=== PATIENT | male | born 1990 | race Caucasian/White ===

== ENCOUNTER 2025-04-02 10:47 | Outpatient (CLI) | payer OTHER, SELFPAY | END 2025-04-02 10:48 | disposition home or self-care (01) | PROVIDERS: Visit Provider Family Medicine | DX: R55 Syncope and collapse (principal) | CPT/HCPCS: A0425; A0427 ==

== ENCOUNTER 2025-04-02 11:05 | Outpatient (CLI) | payer OTHER, SELFPAY | END 2025-04-02 11:06 | disposition home or self-care (01) | LOC: AMB 04-04 11:52 | PROVIDERS: Visit Provider Family Medicine | DX: R55 Syncope and collapse (principal) | CPT/HCPCS: A0425; A0427 ==

== ENCOUNTER 2025-04-02 11:31 | Emergency (ER) | payer OTHER, SELFPAY ==
[2025-04-02] VITALS (120 sets, daily range): BP systolic 88–220; BP diastolic 53–198; PULSE 71–152; RESP 5–41; TEMP 37.3–37.6; O2SAT 93–100; BMI 25.8
--- NOTE | 2025-04-02 11:40 | CRLHL7_ITS ---
For Patients: As a result of the Century Cures Act, medical imaging exams and procedure reports are released immediately into your electronic medical record. You may view this report before your referring provider. If you have questions, please contact your health care provider. INDICATION: [place] runner. Tachycardia. TECHNIQUE: AP portable chest x-ray. FINDINGS: Clear lungs. Normal heart size and pulmonary vascularity. Normal included skeleton. No pneumothorax. No rib fracture identified. IMPRESSION: Negative AP portable chest x-ray. Dictated by Jonh Barnes MD @ 04/02/2025 12:56:56 PM (Electronically Signed)
[2025-04-02 12:01] LABS: Hematocrit* 42.5 % (37.0-53.0); Hemoglobin* 14.9 gm/dL (13.5-17.5); Immature Granulocytes Abs Auto 0.26 K/uL (0.00-0.30); Immature Granulocytes Pct Auto 3.7 %; Lymphocytes Absolute Auto 3.02 K/uL (0.90-2.90); Mean Corpuscular HGB Conc 35 gm/dL (32-36); Mean Corpuscular Hemoglobin 29 pg (26-34); Mean Corpuscular Volume 81 fL (80-100); RDW Coefficient of Variation % 11.4 % (11.5-15.5); Red Blood Count* 5.23 m/uL (4.30-5.90); White Blood Count* 7.06 K/uL (4.50-11.00)
[2025-04-02 12:02] LABS: Slide Review Reflex No
[2025-04-02 12:08] LABS: Troponin, Point-of-Care* 0.39 ng/ml (0.01-0.04)
[2025-04-02] MEDS: LACTATED RINGERS 1000 ML 1,000 ML 500 ML IV (12:15)
[2025-04-02 12:16] LABS: Albumin* 4.4 g/dL (3.3-5.0); Chloride* 115 mmol/L (96-114); Potassium* 4.8 mmol/L (3.6-5.1); Sodium* 143 mmol/L (135-149)
[2025-04-02 12:18] LABS: Blood Urea Nitrogen* 18 mg/dL (5-24); Creatinine* 1.9 mg/dL (0.5-1.5); Est. Creatinine Clearance* 58.35; Estimated Glomerular Filt Rate 47 ml/min
[2025-04-02 12:19] LABS: Alanine Aminotransferase* 21 U/L (4-50); Alkaline Phosphatase* 73 U/L (40-150); Anion Gap 8 mEq/L (7-15); Aspartate Amino Transferase* 41 U/L (12-35); Bilirubin Total* 0.5 mg/dL (0.1-1.5); Calcium* 8.8 mg/dL (8.4-10.6); Carbon Dioxide* 20 mmol/L (20-32); Glucose* 99 mg/dL (60-115); Total Protein* 7.0 g/dL (6.0-8.3)
--- NOTE | 2025-04-02 12:34 | CRLHL7_ITS ---
For Patients: As a result of the Century Cures Act, medical imaging exams and procedure reports are released immediately into your electronic medical record. You may view this report before your referring provider. If you have questions, please contact your health care provider. INDICATION: Altered mental status TECHNIQUE: CT head without contrast. COMPARISON: None. FINDINGS: Motion and beam hardening artifact degrades fine detail evaluation throughout the exam, predominantly within the skull base. No intracranial hemorrhage. No discrete mass or mass effect. There is no midline shift. The basilar cisterns are patent. No hydrocephalus. The padilla-white matter interface is otherwise preserved. No acute osseous abnormality. No extracalvarial soft tissue abnormality. The mastoid air cells are clear. The paranasal sinuses are well-aerated. The visualized portions of the orbits and globes are unremarkable. IMPRESSION: No acute intracranial process per unenhanced head CT given the above constraints. Please note that all CT scans at this facility use dose modulation, iterative reconstruction, and/or weight-based dosing when appropriate to reduce radiation dose to as low as reasonably achievable. Dictated by Julio Baez MD @ 04/02/2025 1:39:30 PM (Electronically Signed)
[2025-04-02 12:35] LABS: Creatine Kinase* 198 U/L (54-186)
--- OUTSIDE RECORDS SUMMARY | 2025-04-02 12:47 | XMS_ITS | Clinical Summary ---
Author Organization [facility] Address [address] [place] [address] Care Team Providers Care Insulation Cutter Name Role Phone Del Oro DO Primary Care Provider Source Comments You are receiving this document as you are listed as the primary care provider,follow-up provider, or the patient has been referred to you for consultation.This is in compliance with the Medicare and[facility] EHR Incentive Program,which states Providers who transition their patient to another setting of careor provider of care or refers their patient to another provider of care shouldprovide summary care record for each transition of care or referral. [employer] Allergies No known active allergies Medications No known medications Immunizations Immunization Administration Dates Next Due Chicken Pox - History of Illness 09/24/1995 DTaP 12/18/1995, 2,08/09/1991,1990,1990 HepA Adult (19+ yrs) 03/06/2021,08/19/2019 HepB Ped/Adol (0-18 yrs) 06/27/2003,11/23/2002,0 09/21/2002 Hib, Unspecified Formulation 03/31/1991,12/21/18 91 Influenza IIV4 (Quadrivalent ) 0.5mL (22494) 08/19/2019 MMR 09/21/2002,03/20/1992 Pfizer Monovalent 12+ Purple Top 12/12/2020,05/0 10/2020 Polio, Unspecified Formulation 6,03/20/1992,03/31/1991,1990 Td 11/23/2002 Tdap 08/19/2019,11/23/2002 Typhoid (Typhim Vi, IM) 08/19/2019 Family History Medical History Relation Name Comments Cancer, Prostate Father Diabetes Paternal Aunt Zeina Cancer, Pancreatic Paternal Grandmother Sera Diabetes Paternal Uncle 1 Skinny Diabetes Paternal Uncle 2 [place] Relation Name Status Comments Father Paternal Aunt Zeina Paternal Grandmother Sera Paternal Uncle 1 Skinny Paternal Uncle 2 [place] Social History Tobacco Use Types Packs/Day Years Used Date Smoking Tobacco: Never Smokeless Tobacco: Current Tobacco Cessation:Ready to Q uit: Not Asked; Counseling Given: Not Answered Alcohol Use Standard Drinks/Week Comments Yes 4 (1 standard drink = 0.6 oz pur e alcohol) 4-5 PHQ-2 Answer Date Recorded PHQ-2 Score 0 07/07/2024 Sex and Gender Information Value Date Recorded Sex Assigned at Not on file Legal Sex Male 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 Gender Identity Not on file Sexual Orientation Not on file Last Filed Vital Signs Vital Sign Reading Time Taken Comments Blood Pressure 137/63 03/06/2021 3:25 PM CDT Pulse 64 03/06/2021 3:25 PM CDT Temperature - - Respiratory Rate - - Oxygen Saturation - - Inhaled Oxygen Concentration - - Weight 83.9 kg (185 lb) 07/07/2024 7:33 AM GROUND CREWMAN Height 180.3 cm (5' 11) 03/06/2021 3:25 PM CDT Body Mass Index 25.8 03/06/2021 3:25 PM CDT Plan of Treatment Health Maintenance Due Date Last Done Comments Hep C Screening (Preventive Services) 1990 HIV Screening (Preventive Services) 2006 HPV Vaccine (1 - 3-dose SCDM series) 2017 COVID-19 Vaccine ( - season) 2025 12/12/2020, 11/21/2020 Influenza Vaccine (#1) 2025 08/19/2019 Adult Preventive Visit 07/07/2026 07/07/2024, 2020 DTaP/Tdap/Td Vaccine (8 - Tdap) 08/19/2029 08/19/2019, 11/23/2002, 11/23/2002, Additional history exists Zoster/Shingles Vaccine (1 of 2) 2040 Hib Vaccine Aged Out 03/31/1991, 1990 No lo nger eligible based on patient's age to complete this topic IPV (Polio) Vaccine Completed 12/18/1995, 03/20/1992, 03/31/1991, Additional history exists HepB Vaccine Completed 06/27/2003, 12/2002, 09/21/2002 HepA Vaccine Completed 03/06/2021, 08/19/2019 MCV4 Vaccine Aged Out No longer eligi ble based on patient's age to complete this topic Meningococcal B Vaccine Aged Out No l onger eligible based on patient's age to complete this topic Pneumococcal Vaccine Aged Out No long er eligible based on patient's age to complete this topic Insurance [facility] Care Teams Insulation Cutter Relationship Specialty Start Date End Date Del Oro DO [address] [place] [address] PCP - General Family Practice 03/06/21
--- OUTSIDE RECORDS SUMMARY | 2025-04-02 12:47 | XMS_ITS | Clinical Summary ---
Author Organization [facility] Address [address] [place] [address] Care Team Providers Care Operations Lead Name Role Phone None Reported, Pcp Primary Care Provider Unavail able Source Comments Patient records contain information from all sites at [facility]. For routine questions regarding patient records, call [phone] during business hours, M-F 8:00 AM - 5:00 PM Central Time. Record requests for emergency care only can be directed to [phone] at any time.[facility] Allergies Active Allergy Reactions Criticality Noted Date Comments Pollen Extracts Other (see comments) 10/28/2010 Medications oxyCODONE (ROXICODONE) 5 mg immediate release tabletIndicatio ns:Acute Pain Exception Take 1 tablet (5 mg total) by mouth every 4 (four) hours as needed for pain for up to 10 doses Indication: Acute Pain Exception. 10 tablet 08/26/2023 10:24 AM ASSISTANT BUYER 08/26/2023 Active cefdinir (OMNICEF) 300 mg capsule Take 1 capsule by mouth 2 (two) times a day. 07/31/2023 Active Active Problems No known active problems Immunizations Immunization Administration Dates Next Due HepB, Unspecified 11/23/2002 MMR 09/21/2002 Td (Adult), adsorbed 11/23/2002 Social History Tobacco Use Types Packs/Day Years Used Date Smoking Tobacco: Never Smokeless Tobacco: Never Tobacco Cessation:Counseling Given: Not Answered [facility] Utilities Answer Date Recorded In the past 12 months has [employer], gas, oil, or water company threatened to shut off services in your home? Patient declined 08/12/2023 Hunger Vital Sign Answer Date Recorded Within the past 12 months, y ou worried that your food would run out before you got the money to buy more. Patient declined Within the past 12 months, t he food you bought just didn't last and you didn't have money to get more. Patient declined PRAPARE - Transportation Answer Date Re corded In the past 12 months, has l ack of transportation kept you from medical appointments or from getting medications? Patient declined 08/12/2023 In the past 12 months, has l ack of transportation kept you from meetings, work, or from getting things needed for daily living? Patient declined 08/12/2023 Housing Stability Answer Date Recorded What is your living situation today? Patient dec lined 08/12/2023 Sex and Gender Information Value Date Recorded Sex Assigned at Male 08/12/2023 12:24 PM ASSISTANT BUYER Legal Sex Male 10:04 PM ASSISTANT BUYER Gender Identity Male 08/12/2023 12:24 PM ASSISTANT BUYER Sexual Orientation Choose not to disclose 2023 12:24 PM ASSISTANT BUYER Last Filed Vital Signs Vital Sign Reading Time Taken Comments Blood Pressure 134/87 08/26/2023 1:45 PM ASSISTANT BUYER Pulse 74 08/26/2023 1:55 PM ASSISTANT BUYER Temperature 36.6 C (97.9 F) 08/26/2023 1:55 PM ASSISTANT BUYER Respiratory Rate 13 08/26/2023 1:55 PM ASSISTANT BUYER Oxygen Saturation 96% 08/26/2023 1:55 PM ASSISTANT BUYER Inhaled Oxygen Concentration - - Weight 84.7 kg (186 lb 11.7 oz) 08/26/2023 7:35 AM ASSISTANT BUYER Height 180.3 cm (5' 11) 08/26/2023 7:35 AM ASSISTANT BUYER Body Mass Index 26.04 08/26/2023 7:35 AM ASSISTANT BUYER Plan of Treatment Health Maintenance Due Date Last Done Comments HIV Screening 1990 Hepatitis C Screening 1990 HPV Vaccines (1 - 3-dose SCDM series) 2017 Depression Screening (Annual PHQ-2) 07/21/2024 COVID-19 Vaccine ( season) 2025 12/12/2020, 11/21/2020 Influenza Vaccine (#1) 2025 08/19/2019 DTaP,Tdap,and Td Vaccines (7 - Td or Tdap) 08/19/2029 08/19/2019, 11/23/2002, 11/23/2002, Additional history exists IPV Vaccines Completed 12/18/1995, 02/20, 03/31/1991, Additional history exists Hepatitis B Vaccines Completed 06/27/2003, 11/23/2002, 09/21/2002 Pneumococcal vaccine (0-49 years) Aged Out No longer eligible based on patient's age to complete this topic Insurance [facility] Care Teams Operations Lead Relationship Specialty Start Date End Date None Reported, Pcp PCP - General Family Medicine 08/26/23
--- OUTSIDE RECORDS SUMMARY | 2025-04-02 12:47 | XMS_ITS | Clinical Summary ---
Author Organization [facility] Address [address] [place] [id number] Care Team Providers Care Yarn Dry Room Worker Name Role Phone Pcp, No Primary Care Provider Unavailabl e Allergies No known active allergies Medications ibuprofen (ADVIL; MOTRIN) 200 mg tablet Take 1 tablet by mouth 4 times daily if needed. 0 09/03/2016 Active Active Problems No known active problems Immunizations Immunization Administration Dates Next Due Tdap 11/23/2002 Family History Medical History Relation Name Comments Good Health Father Good Health Mother Cancer Paternal Grandmother Alcoholism Paternal Uncle Relation Name Status Comments Father Mother Paternal Grandmother Paternal Uncle Social History Tobacco Use Types Packs/Day Years Used Date Smoking Tobacco: Never Smokeless Tobacco: Never Tobacco Cessation:Counseling Given: No Alcohol Use Standard Drinks/Week Comments Yes 0 (1 standard drink = 0.6 oz pur e alcohol) 3 per week Sex and Gender Information Value Date Recorded Sex Assigned at Not on file Legal Sex Male 7:55 AM CDT Gender Identity Not on file Sexual Orientation Not on file Obstetrics History Last Filed Vital Signs Vital Sign Reading Time Taken Comments Blood Pressure 110/70 09/03/2016 7:28 AM MACHINE ASSISTANT Pulse 66 09/03/2016 7:28 AM MACHINE ASSISTANT Temperature 36.7 C (98.1 F) 09/03/2016 7:28 AM MACHINE ASSISTANT Respiratory Rate - - Oxygen Saturation - - Inhaled Oxygen Concentration - - Weight 76.2 kg (168 lb) 09/03/2016 7:28 AM MACHINE ASSISTANT Height 178.4 cm (5' 10.25) 09/03/2016 7:[address] Body Mass Index 23.93 09/03/2016 7:28 AM MACHINE ASSISTANT Plan of Treatment Health Maintenance Due Date Last Done Comments HIV for age 15-65 2005 Hepatitis C screening for ag e 18-79 2008 Hepatitis B series for 19+ ( 1 of 3 - 19+ 3-dose series) 2009 Tetanus booster 11/23/2012 11/23/2002 Depression screening for age 12+ 02/27/2017 02/28/2016 BMI (ht and wt on same day) for age 18+ 09/03/2017 09/03/2016, 02/28/2016 HPV series for age 9-45 (1 - 3-dose SCDM series) 2017 COVID-19 vaccine series ( - 2023- season) 2025 Influenza Vaccine (#1) 2025 RSV vaccine for adults or (1 - 1-dose 75+ series) 2065 Pneumococcal series for age 6-49 Aged Out No longer eligible b ased on patient's age to complete this topic [place] [address] [place] [address] Care Teams Yarn Dry Room Worker Relationship Specialty Start Date End Date Pcp, No . PCP - General 02/28/16
[2025-04-02 12:50] LABS: INR 1.12 (0.91-1.10); Prothrombin Time 15.3 Seconds
[2025-04-02 12:53] LABS: HCO3 VBG 23 mmol/L (21-28); Lactate* 3.0 mmol/L (0.5-1.9); PCO2 VBG 49 mmHG (40-50); PO2 VBG < 30.1 mmHG (25-47); pH VBG 7.280 (7.32-7.43)
--- NOTE | 2025-04-02 13:09 | ED.GENADULT ---
HPI - General Adult General Date Seen: 04/02/25 Chief complaint: Arrhythmia/Palpitations Stated complaint: dehydration Time Seen by Provider: 04/02/25 11:48 Source: family, EMS and other Mode of arrival: EMS Limitations: no limitations History of Present Illness HPI narrative: Patient is a 34-year-old man with no pertinent medical history presenting to the emergency department for tachycardia and altered mental status. He was running a half marathon today and was almost to the and when he had to sit down. Workers for the event came up to him and he was stating he was having ankle issues. His , who was also running, states she was coming around a corner when she saw then loaded him onto the golf cart. She states he seemed to be acting completely normal and was acting as if it was his ankle problem as he was having ankle issues earlier. He told her to keep on chronic to the finish line so she did and the not think there is any other abnormalities. Patient then began to go padilla after that and was confused and minimally responsive. He was brought to EMS states he was tachycardic at 170. They state they did not have useful thermometer so they did not check a temperature but heart rate was in the 170s and he was very altered. Also was very diaphoretic. They gave him a L of fluids while transporting him here to the emergency department. They states he became more awake but is still confused and is still tachycardic of 160s by the time he arrived. Patient is unable to give me any further information. He does know he is at a hospital but does not know where the race was, what city he is currently and and was having difficulty giving his date. Denies any pain right now. Per reports from EMS and the it was very hot and muggy out with an uneven course. His does states he had viral symptoms last week that have since resolved. Related Data Home Medications ?Medication ?Instructions ?Recorded ?Confirmed No Known Home Medications 04/02/25 04/02/25 Allergies Allergy/AdvReac Type Severity Reaction Status Date / Time amoxicillin Allergy Intermediate Verified 04/02/25 12:22 Review of Systems Status of ROS: Reports: 10 or more systems reviewed and unremarkable except as noted in History and below Exam Narrative: Exam Narrative: Const: Well-nourished, Well-developed, diaphoretic Eyes: PERRL, no conjunctival injection, and symmetrical lids HENT: Atraumatic external nose and ears. Moist mucous membranes. Neck: Symmetric, trachea midline, No thyromegaly. CVS: Tachycardic, No murmurs or gallops. Pulsating JVD, Peripheral pulses 2+ and equal in all extremities RESP: Unlabored respiratory effort. Clear to auscultation bilaterally. GI: Nontender/Nondistended, No rebound or guarding. MSK:Extremities w/o deformity, Normal Active ROM Skin: Warm, Dry. No rashes or lesions. Neuro: Normal Muscle tone, No focal neurological deficits. Psych: Awake, Alert, & Oriented x0 Const: Vital Signs, click to edit/add: Vital Signs - 24 hr 04/02/25 11:35 04/02/25 11:51 04/02/25 12:00 Temperature 99.2 F Pulse Rate Pulse Rate [Pulse Oximeter] 152 H Respiratory Rate 30 H 38 H 32 H Blood Pressure Blood Pressure [Le ft Upper Arm] 113/67 Pulse Oximetry [facility] 04/02/25 12:03 04/02/25 12:04 04/02/25 12:12 Temperature Pulse Rate Pulse Rate [Pulse Oximeter] Respiratory Rate 41 H 24 19 Blood Pressure 149/69 H 127/74 Blood Pressure [Le ft Upper Arm] Pulse Oximetry [facility] 04/02/25 12:15 04/02/25 12:21 04/02/25 12:30 Temperature Pulse Rate 114 H 111 H Pulse Rate [Pulse Oximeter] Respiratory Rate 36 H 38 H Blood Pressure 136/86 Blood Pressure [Le ft Upper Arm] Pulse Oximetry 96 96 97 [facility] 04/02/25 12:32 04/02/25 12:33 04/02/25 12:42 Temperature Pulse Rate 109 H 107 H 120 H Pulse Rate [Pulse Oximeter] Respiratory Rate 36 H 38 H 19 Blood Pressure 133/76 220/198 H Blood Pressure [Le ft Upper Arm] Pulse Oximetry 98 97 93 [facility] 04/02/25 12:45 04/02/25 12:52 04/02/25 13:00 Temperature Pulse Rate 110 H 105 H Pulse Rate [Pulse Oximeter] Respiratory Rate 27 H 32 H 29 H Blood Pressure 127/83 Blood Pressure [Le ft Upper Arm] Pulse Oximetry 96 97 [facility] 04/02/25 13:01 04/02/25 13:02 04/02/25 13:13 Temperature Pulse Rate 106 H Pulse Rate [Pulse Oximeter] Respiratory Rate 31 H 25 H Blood Pressure 119/73 119/83 Blood Pressure [Le ft Upper Arm] Pulse Oximetry 98 97 Oxygen Delivery Me thod 04/02/25 13:15 04/02/25 13:22 04/02/25 13:23 Temperature Pulse Rate 103 H 104 H 105 H Pulse Rate [Pulse Oximeter] Respiratory Rate 18 9 L 10 L Blood Pressure 116/65 Blood Pressure [Le ft Upper Arm] Pulse Oximetry 96 94 96 Oxygen Delivery Me thod 04/02/25 13:27 04/02/25 13:30 04/02/25 13:32 Temperature 99.6 F Pulse Rate 98 103 H Pulse Rate [Pulse Oximeter] Respiratory Rate 30 H 16 Blood Pressure 113/82 Blood Pressure [Le ft Upper Arm] Pulse Oximetry 95 95 Oxygen Delivery Me thod 04/02/25 13:41 04/02/25 13:45 04/02/25 13:51 Temperature Pulse Rate 100 102 H 101 H Pulse Rate [Pulse Oximeter] Respiratory Rate 28 H 24 32 H Blood Pressure 108/77 115/72 Blood Pressure [Le ft Upper Arm] Pulse Oximetry 95 95 95 Oxygen Delivery Me thod 04/02/25 14:00 04/02/25 14:02 04/02/25 14:12 Temperature Pulse Rate 98 96 97 Pulse Rate [Pulse Oximeter] Respiratory Rate 24 29 H 22 Blood Pressure 112/71 101/91 H Blood Pressure [Le ft Upper Arm] Pulse Oximetry 96 95 96 Oxygen Delivery Me thod 04/02/25 14:15 04/02/25 14:22 04/02/25 14:30 Temperature Pulse Rate 98 96 94 Pulse Rate [Pulse Oximeter] Respiratory Rate 19 10 L Blood Pressure 110/71 Blood Pressure [Le ft Upper Arm] Pulse Oximetry 96 96 96 Oxygen Delivery Me thod 04/02/25 14:32 04/02/25 14:41 04/02/25 14:45 Temperature Pulse Rate 96 94 93 Pulse Rate [Pulse Oximeter] Respiratory Rate 9 L 18 7 L Blood Pressure 112/94 H 98/65 Blood Pressure [Le ft Upper Arm] Pulse Oximetry 95 96 96 Oxygen Delivery Me thod 04/02/25 14:51 04/02/25 15:00 04/02/25 15:02 Temperature Pulse Rate 91 88 91 Pulse Rate [Pulse Oximeter] Respiratory Rate 10 L 17 17 Blood Pressure 106/73 106/67 Blood Pressure [Le ft Upper Arm] Pulse Oximetry 97 96 96 Oxygen Delivery Me thod 04/02/25 15:12 04/02/25 15:15 04/02/25 15:22 Temperature Pulse Rate 93 92 87 Pulse Rate [Pulse Oximeter] Respiratory Rate 18 6 L Blood Pressure 89/66 L 88/53 L Blood Pressure [Le ft Upper Arm] Pulse Oximetry 96 97 97 Oxygen Delivery Me thod 04/02/25 15:30 04/02/25 15:32 04/02/25 15:42 Temperature Pulse Rate 91 92 89 Pulse Rate [Pulse Oximeter] Respiratory Rate 25 H 26 H Blood Pressure 105/66 103/64 Blood Pressure [Le ft Upper Arm] Pulse Oximetry 96 95 97 Oxygen Delivery Me thod 04/02/25 15:45 04/02/25 15:51 04/02/25 16:00 Temperature Pulse Rate 88 88 100 Pulse Rate [Pulse Oximeter] Respiratory Rate 25 H 21 Blood Pressure 99/67 Blood Pressure [Le ft Upper Arm] Pulse Oximetry 98 98 98 Oxygen Delivery Me thod 04/02/25 16:02 04/02/25 16:12 04/02/25 16:15 Temperature Pulse Rate 88 85 86 Pulse Rate [Pulse Oximeter] Respiratory Rate 10 L 14 15 Blood Pressure 97/75 102/68 Blood Pressure [Le ft Upper Arm] Pulse Oximetry 98 97 98 Oxygen Delivery Me thod 04/02/25 16:30 04/02/25 16:32 04/02/25 16:42 Temperature Pulse Rate 89 91 89 Pulse Rate [Pulse Oximeter] Respiratory Rate 14 11 L 25 H Blood Pressure 113/73 110/69 Blood Pressure [Le ft Upper Arm] Pulse Oximetry 99 100 99 Oxygen Delivery Me thod 04/02/25 16:43 04/02/25 16:45 04/02/25 16:52 Temperature Pulse Rate 91 90 86 Pulse Rate [Pulse Oximeter] Respiratory Rate 15 14 Blood Pressure 108/71 Blood Pressure [Le ft Upper Arm] Pulse Oximetry 99 98 100 Oxygen Delivery Me thod 04/02/25 17:00 04/02/25 17:02 04/02/25 17:12 Temperature Pulse Rate 90 91 87 Pulse Rate [Pulse Oximeter] Respiratory Rate 13 24 Blood Pressure 110/71 116/70 Blood Pressure [Le ft Upper Arm] Pulse Oximetry 97 99 99 Oxygen Delivery Me thod 04/02/25 17:22 04/02/25 17:32 04/02/25 17:41 Temperature Pulse Rate 88 93 96 Pulse Rate [Pulse Oximeter] Respiratory Rate 16 13 Blood Pressure 115/65 99/66 113/75 Blood Pressure [Le ft Upper Arm] Pulse Oximetry 100 100 99 Oxygen Delivery Me thod 04/02/25 17:51 04/02/25 17:52 04/02/25 18:00 Temperature Pulse Rate 89 88 90 Pulse Rate [Pulse Oximeter] Respiratory Rate 22 12 20 Blood Pressure 106/63 Blood Pressure [Le ft Upper Arm] Pulse Oximetry 99 99 98 Oxygen Delivery Me thod 04/02/25 18:02 04/02/25 18:12 04/02/25 18:15 Temperature Pulse Rate 92 85 85 Pulse Rate [Pulse Oximeter] Respiratory Rate 13 21 23 Blood Pressure 98/68 100/66 Blood Pressure [Le ft Upper Arm] Pulse Oximetry 99 99 98 Oxygen Delivery Me thod 04/02/25 18:22 04/02/25 18:30 04/02/25 18:32 Temperature Pulse Rate 86 85 86 Pulse Rate [Pulse Oximeter] Respiratory Rate 11 L 34 H 20 Blood Pressure 108/68 104/68 Blood Pressure [Le ft Upper Arm] Pulse Oximetry 99 97 97 Oxygen Delivery Me thod 04/02/25 18:42 04/02/25 18:45 04/02/25 18:52 Temperature Pulse Rate 89 87 89 Pulse Rate [Pulse Oximeter] Respiratory Rate 18 20 5 L Blood Pressure 102/68 110/71 Blood Pressure [Le ft Upper Arm] Pulse Oximetry 96 96 97 Oxygen Delivery Me thod Course Vital Signs Vital signs: Initial Vital Signs Temperature 99.2 F 04/02/25 11:35 Temperature Source Oral 04/02/25 11:35 Pulse Rate 152 H 04/02/25 11:35 Respiratory Rate 30 H 04/02/25 11:35 Blood Pressure 113/67 04/02/25 11:35 Blood Pressure Mean 82 04/02/25 11:35 Blood Pressure Position Supine 04/02/25 11:35 Pulse Oximetry 93 04/02/25 11:35 Oxygen Delivery Method Room Air 04/02/25 11:35 Vital Signs Temperature 99.2 F 04/02/25 11:35 Pulse Rate 152 H 04/02/25 11:35 Respiratory Rate 30 H 04/02/25 11:35 Blood Pressure 113/67 04/02/25 11:35 Pulse Oximetry 93 04/02/25 11:35 Oxygen Delivery Method Room Air 04/02/25 11:35 Temperature 99.6 F 04/02/25 13:27 Pulse Rate 89 04/02/25 18:52 Respiratory Rate 5 L 04/02/25 18:52 Blood Pressure 110/71 04/02/25 18:52 Pulse Oximetry 97 04/02/25 18:52 Oxygen Delivery Method Room Air 04/02/25 11:35 Medications Administered Medications: Discontinued Medications Generic Name Dose Route Start Last Admin Trade Name Freq PRN Reason Stop Dose Admin Sodium Chloride 1,000 mls @ 1,000 mls/hr 04/02/25 12:00 04/02/25 12:06 0.9 % Sodium Chloride 1000 Ml IV 04/02/25 12:59 Infused .Q1H KISHAN Infusion Lactated Ringer's 1,000 mls @ 500 mls/hr 04/02/25 12:28 04/02/25 13:22 Lactated Ringers 1000 Ml IV 04/02/25 14:27 Infused .Q2H KISHAN Infusion Metoclopramide HCl 10 mg 04/02/25 12:54 04/02/25 13:30 Metoclopramide Hcl 5 Mg/Ml Inj IVP 04/02/25 12:55 Not Given ONCE ONE Medical Decision Making MDM Narrative Medical decision making narrative: Patient is a 34-year-old male presenting to the emergency department for altered mental status and tachycardia. EKG was done when he arrived showing a sinus tachycardia. I do not believe this is SVT so I will hold off on doing at adenosine. Most likely his tachycardia is from dehydration as he is extremely diaphoretic. Oral temperature when he arrived was 99.6 but this was an hour after the initial occurrence I cannot say he was not having heat stroke earlier. He does have altered mental status. With how much she was sweating and the fact that he is drinking water along the course I am concerned for hyponatremia. He has received 1 L of normal saline over ready and we will give another L. Initially was pressure bagged to bring up his fluid status but his heart rate quickly came down to about 120 to 130 and due to that after when a pressure bag in and a quarter to half of the bag we stopped the pressure bag and instead let it run by gravity as I do not want to overcorrect a potential hyponatremia. Lab work was not done until he got about 1.5 L total between EMS and the emergency department but would very likely be still hyponatremic if the issue was hyponatremia. Also order a VBG, lactate, CK, TSH, coags, CBC, CMP. Troponin was also ordered and was 0.39. This was likely secondary to the heat stroke and is unlikely to be ACS and this otherwise healthy man although his did states he was having some viral symptoms a week ago so myocarditis is not ruled out. Will repeat troponin. His CBC returned unremarkable. His CMP showed normal LFTs a sodium of 143 potassium 4.5 and a creatinine of 1.9. Do not know what his previous creatinine and was but likely it is currently elevated due to dehydration. Patient has received the 2 L fluid and is now getting a L of lactated Ringer's 500 mL/hr to help with his fluid status. He is showing great improvement at this time and his states he almost appears back to normal. As he is now stable I will order CT scan of his head for evaluation. This was done and returned showing no acute concerning abnormalities. Chest x-ray was also done showing no acute concerning abnormalities. Repeat troponin was done 3 hours later and has elevated to 0.65. Repeat EKG was done showing his tachycardia has improved significantly and no acute abnormality seen. I spoke to Dr. Castellon of [facility]. She recommended repeat troponin in 6 hours and a echocardiogram in the morning as it is hard to say if is myocarditis or not due to his viral symptoms from last week. At this time Dr. Castellon does think the patient is safe to stay here and [place] as long as we are comfortable with it. I spoke to the on-call hospitalist who asked for repeat troponin now to make sure it is still not rising. This was done and it has now gone up to 0.89. Patient is still pain free and is fully back to his baseline. He is asymptomatic currently and throughout this time has stated he has not had any chest pain as far as he is aware. Another EKG was done showing normal sinus rhythm. I reviewed several criteria for LVH and I do not see any criteria for LVH/HOCM on his EKG. Bedside echocardiogram done by myself shows good heart squeeze. I spoke to the on-call hospitalist again he wants me to speak to the cath lab tech and reconfirm if we should admit or transfer as she does feel uncomfortable with the young patient like this having continuing the elevated high troponins with out a known cause. I spoke to Dr. Castellon again he states the patient is a reasonable patient to transfer due to his unclear etiology of the rising troponins. I did consider possible decreased perfusion from the severe dehydration and heat stroke but still seems odd that she could lowers perfusion in his heart low enough from this to cause the elevated troponins. Of note patient does states his uncle and great grandfather of a heart attack at a young age. In the 40s he believes. No other heart disease that he is aware of in the family. Lab Data Labs: Lab Results 04/02/25 04/02/25 04/02/25 Range/Units 11:39 11:52 12:10 WBC 7.06 (4.50-11.00) K/uL RBC 5.23 (4.30-5.90) m/uL Hgb 14.9 (13.5-17.5) gm/dL Hct 42.5 (37.0-53.0) % MCV 81 (80-100) fL MCH 29 (26-34) pg MCHC 35 (32-36) gm/dL RDW Coeff of Edis 11.4 L (11.5-15.5) % Plt Count 198 (140-440) K/uL Neut % (Auto) 42.7 (42.0-72.0) % Lymph % (Auto) 42.8 (20-44) % [place] % (Auto) 7.5 (0.0-11.0) % Eos % (Auto) 3.0 (0.0-7.0) % Baso % (Auto) 0.3 (0.0-3.0) % Neut # (Auto) 3.02 (1.7-7.0) K/uL Lymph # (Auto) 3.02 H (0.90-2.90) K/uL [place] # (Auto) 0.50 (0.00-0.90) K/UL Eos # (Auto) 0.21 (0.00-0.50) K/uL Baso # (Auto) 0.02 (0.00-0.30) K/uL Abs Immat Gran (auto) 0.26 (0.00-0.30) K/uL Imm/Tot Granulo (auto) 3.7 % INR 1.12 H (0.91-1.10) APTT 23 (23-33) Seconds VBG pH (7.32-7.43) VBG pCO2 (40-50) mmHG VBG pO2 (25-47) mmHG VBG HCO3 (21-28) mmol/L Sodium 143 (135-149) mmol/L Potassium 4.8 (3.6-5.1) mmol/L Chloride 115 H (96-114) mmol/L Carbon Dioxide 20 (20-32) mmol/L Anion Gap 8 (7-15) mEq/L BUN 18 (5-24) mg/dL Creatinine 1.9 H (0.5-1.5) mg/dL Estimated Creat Clear 58.35 Estimated GFR 47 ml/min Glucose 99 (60-115) mg/dL Lactate (0.5-1.9) mmol/L Calcium 8.8 (8.4-10.6) mg/dL Magnesium 1.6 (1.5-2.6) mg/dL Total Bilirubin 0.5 (0.1-1.5) mg/dL AST 41 H (12-35) U/L ALT 21 (4-50) U/L Alkaline Phosphatase 73 (40-150) U/L Total Creatine Kinase 198 H (54-186) U/L Troponin I 0.38 H* (0.01-0.04) ng/mL Total Protein 7.0 (6.0-8.3) g/dL Albumin 4.4 (3.3-5.0) g/dL TSH 2.260 (0.270-4.20) uIU/mL Urine Color (Yellow) Urine Appearance (Clear) Urine pH (5.0-8.5) Ur Specific [place] (1.000-1.030) Urine Protein (Negative) Urine Glucose (UA) (Negative) Urine Ketones (Negative) Urine Blood (Negative) Urine Nitrite (Negative) Urine Bilirubin (Negative) Urine Urobilinogen (0.2-1.0) Ur Leukocyte Esterase (Negative) Urine RBC (0-2) Urine WBC (0-5) Ur Squamous Epith Cells (None-Few) Urine Bacteria (None) Urine Opiates Screen (Negative) Ur Oxycodone Screen (Negative) Urine Methadone Screen (Negative) Ur Barbiturates Screen (Negative) U Tricyclic Antidepress (Negative) Ur Phencyclidine Scrn (Negative) Ur Amphetamines Screen (Negative) U Methamphetamines Scrn (Negative) U Benzodiazepines Scrn (Negative) Urine Cocaine Screen (Negative) U Marijuana (THC) Screen (Negative) Ur Drug Screen Comment Lab Acknowledgement Test Added POC Glucose 103 (60-115) mg/dl POC Troponin I 0.39 H (0.01-0.04) ng/ml 04/02/25 04/02/25 04/02/25 Range/Units 12:34 12:47 13:01 WBC (4.50-11.00) K/uL RBC (4.30-5.90) m/uL Hgb (13.5-17.5) gm/dL Hct (37.0-53.0) % MCV (80-100) fL MCH (26-34) pg MCHC (32-36) gm/dL RDW Coeff of Edis (11.5-15.5) % Plt Count (140-440) K/uL Neut % (Auto) (42.0-72.0) % Lymph % (Auto) (20-44) % [place] % (Auto) (0.0-11.0) % Eos % (Auto) (0.0-7.0) % Baso % (Auto) (0.0-3.0) % Neut # (Auto) (1.7-7.0) K/uL Lymph # (Auto) (0.90-2.90) K/uL [place] # (Auto) (0.00-0.90) K/UL Eos # (Auto) (0.00-0.50) K/uL Baso # (Auto) (0.00-0.30) K/uL Abs Immat Gran (auto) (0.00-0.30) K/uL Imm/Tot Granulo (auto) % INR (0.91-1.10) APTT (23-33) Seconds VBG pH 7.280 L (7.32-7.43) VBG pCO2 49 (40-50) mmHG VBG pO2 < 30.1 (25-47) mmHG VBG HCO3 23 (21-28) mmol/L Sodium 143 (135-149) mmol/L Potassium 4.5 (3.6-5.1) mmol/L Chloride 112 (96-114) mmol/L Carbon Dioxide 25 (20-32) mmol/L Anion Gap 6 L (7-15) mEq/L BUN 21 (5-24) mg/dL Creatinine 1.6 H (0.5-1.5) mg/dL Estimated Creat Clear 69.29 Estimated GFR 58 ml/min Glucose 118 H (60-115) mg/dL Lactate 3.0 H 1.5 (0.5-1.9) mmol/L Calcium 9.0 (8.4-10.6) mg/dL Magnesium (1.5-2.6) mg/dL Total Bilirubin (0.1-1.5) mg/dL AST (12-35) U/L ALT (4-50) U/L Alkaline Phosphatase (40-150) U/L Total Creatine Kinase (54-186) U/L Troponin I 0.65 H* (0.01-0.04) ng/mL Total Protein (6.0-8.3) g/dL Albumin (3.3-5.0) g/dL TSH (0.270-4.20) uIU/mL Urine Color (Yellow) Urine Appearance (Clear) Urine pH (5.0-8.5) Ur Specific [place] (1.000-1.030) Urine Protein (Negative) Urine Glucose (UA) (Negative) Urine Ketones (Negative) Urine Blood (Negative) Urine Nitrite (Negative) Urine Bilirubin (Negative) Urine Urobilinogen (0.2-1.0) Ur Leukocyte Esterase (Negative) Urine RBC (0-2) Urine WBC (0-5) Ur Squamous Epith Cells (None-Few) Urine Bacteria (None) Urine Opiates Screen (Negative) Ur Oxycodone Screen (Negative) Urine Methadone Screen (Negative) Ur Barbiturates Screen (Negative) U Tricyclic Antidepress (Negative) Ur Phencyclidine Scrn (Negative) Ur Amphetamines Screen (Negative) U Methamphetamines Scrn (Negative) U Benzodiazepines Scrn (Negative) Urine Cocaine Screen (Negative) U Marijuana (THC) Screen (Negative) Ur Drug Screen Comment Lab Acknowledgement Test Added POC Glucose (60-115) mg/dl POC Troponin I (0.01-0.04) ng/ml 04/02/25 04/02/25 04/02/25 Range/Units 13:31 16:20 17:35 WBC (4.50-11.00) K/uL RBC (4.30-5.90) m/uL Hgb (13.5-17.5) gm/dL Hct (37.0-53.0) % MCV (80-100) fL MCH (26-34) pg MCHC (32-36) gm/dL RDW Coeff of Edis (11.5-15.5) % Plt Count (140-440) K/uL Neut % (Auto) (42.0-72.0) % Lymph % (Auto) (20-44) % [place]agon[place] % (Auto) (0.0-11.0) % Eos % (Auto) (0.0-7.0) % Baso % (Auto) (0.0-3.0) % Neut # (Auto) (1.7-7.0) K/uL Lymph # (Auto) (0.90-2.90) K/uL [place] # (Auto) (0.00-0.90) K/UL Eos # (Auto) (0.00-0.50) K/uL Baso # (Auto) (0.00-0.30) K/uL Abs Immat Gran (auto) (0.00-0.30) K/uL Imm/Tot Granulo (auto) % INR (0.91-1.10) APTT (23-33) Seconds VBG pH (7.32-7.43) VBG pCO2 (40-50) mmHG VBG pO2 (25-47) mmHG VBG HCO3 (21-28) mmol/L Sodium (135-149) mmol/L Potassium (3.6-5.1) mmol/L Chloride (96-114) mmol/L Carbon Dioxide (20-32) mmol/L Anion Gap (7-15) mEq/L BUN (5-24) mg/dL Creatinine (0.5-1.5) mg/dL Estimated Creat Clear Estimated GFR ml/min Glucose (60-115) mg/dL Lactate (0.5-1.9) mmol/L Calcium (8.4-10.6) mg/dL Magnesium (1.5-2.6) mg/dL Total Bilirubin (0.1-1.5) mg/dL AST (12-35) U/L ALT (4-50) U/L Alkaline Phosphatase (40-150) U/L Total Creatine Kinase (54-186) U/L Troponin I 0.89 H* (0.01-0.04) ng/mL Total Protein (6.0-8.3) g/dL Albumin (3.3-5.0) g/dL TSH (0.270-4.20) uIU/mL Urine Color Yellow (Yellow) Urine Appearance Clear (Clear) Urine pH 5.5 (5.0-8.5) Ur Specific [place] 1.015 (1.000-1.030) Urine Protein Negative (Negative) Urine Glucose (UA) Negative (Negative) Urine Ketones Trace A (Negative) Urine Blood 1+ A (Negative) Urine Nitrite Negative (Negative) Urine Bilirubin Negative (Negative) Urine Urobilinogen 0.2 (0.2-1.0) Ur Leukocyte Esterase Negative (Negative) Urine RBC 0-2 (0-2) Urine WBC 0-2 (0-5) Ur Squamous Epith Cells None (None-Few) Urine Bacteria None (None) Urine Opiates Screen Negative (Negative) Ur Oxycodone Screen Negative (Negative) Urine Methadone Screen Negative (Negative) Ur Barbiturates Screen Negative (Negative) U Tricyclic Antidepress Negative (Negative) Ur Phencyclidine Scrn Negative (Negative) Ur Amphetamines Screen Negative (Negative) U Methamphetamines Scrn Negative (Negative) U Benzodiazepines Scrn Negative (Negative) Urine Cocaine Screen Negative (Negative) U Marijuana (THC) Screen Negative (Negative) Ur Drug Screen Comment See Note Lab Acknowledgement Test Added POC Glucose (60-115) mg/dl POC Troponin I (0.01-0.04) ng/ml Imaging Data Chest x-ray: Attestation: I have reviewed the pertinent imaging results. Radiologist's impression: Negative AP portable chest x-ray. Dictated by Jonh Barnes MD @ 04/02/2025 12:56:[address] scan - head: Attestation: I have reviewed the pertinent imaging results. Radiologist's impression: No acute intracranial process per unenhanced head CT given the above constraints. Please note that all CT scans at this facility use dose modulation, iterative reconstruction, and/or weight-based dosing when appropriate to reduce radiation dose to as low as reasonably achievable. Dictated by Julio Baez MD @ 04/02/2025 1:39:30 PM ECG Data Attestation: I personally reviewed and interpreted this ECG as follows: Prior ECG tracings: not available for review Interpretation: Initial EKG at 11:40: Sinus tachycardia with a rate wanting 49 beats per minute, normal intervals, normal axis, no ST or T-wave abnormalities. Repeat EKG at 12:55: Sinus tachycardia with a rate of 110 beats per minute, normal intervals, normal axis, no ST or T-wave abnormalities Final EKG at 16:41: Normal sinus rhythm with rate of 88 beats per minute, normal intervals, normal axis, no ST or T-wave abnormality Critical Care Time Critical Care Time Critical Care Time: Yes Attestation: The patient required my highest level preparedness to intervene emergently and I personally spent this critical care time directly and personally managing the patient. This critical care time included: Obtaining a history; Examining the patient; Pulse oximetry; Ordering and reviewing of studies; Arranging urgent treatment with development of a management plan; Evaluation of patients response to treatment; Frequent reassessment discussions with other providers. This critical care time was performed to assess and manage the high probability of imminent life-threatening deterioration that could result in multiorgan failure. It was exclusive of separate billable procedures and treating other patients and teaching time. Total Critical Care Time in Minutes: 55 Discharge Plan Discharge Clinical Impression: Elevated troponin, LIO (acute kidney injury), Severe dehydration Heat stroke Qualifiers: Encounter type: initial encounter Qualified Code(s): T67.01XA - Heatstroke and sunstroke, initial encounter Patient Disposition: [facility] Condition: Guarded Prescriptions: No Action No Known Home Medications Stand Alone Forms: MyHealth Info Instructions Procedures ABG Interpretation ABG Results: 04/02/25 12:47 VBG pH 7.280 L VBG pCO2 49 VBG pO2 < 30.1 VBG HCO3 23
[2025-04-02 13:10] LABS: Glucose, Point-of-Care* 103 mg/dl (60-115)
[2025-04-02 15:05] LABS: Lactate* 1.5 mmol/L (0.5-1.9)
[2025-04-02 15:27] LABS: Chloride* 112 mmol/L (96-114); Potassium* 4.5 mmol/L (3.6-5.1); Sodium* 143 mmol/L (135-149)
[2025-04-02 15:30] LABS: Anion Gap 6 mEq/L (7-15); Blood Urea Nitrogen* 21 mg/dL (5-24); Calcium* 9.0 mg/dL (8.4-10.6); Carbon Dioxide* 25 mmol/L (20-32); Creatinine* 1.6 mg/dL (0.5-1.5); Est. Creatinine Clearance* 69.29; Estimated Glomerular Filt Rate 58 ml/min; Glucose* 118 mg/dL (60-115)
[2025-04-02 16:55] LABS: Appearance Urine Clear (Clear)
[2025-04-02 17:04] LABS: Cannabinoid Screen Urine Negative (Negative); Methamphetamines Screen Urine Negative (Negative); Tricyclic Antidepressant Urine Negative (Negative)
[2025-04-02 19:38] LABS: Erythrocyte SedimentationRate* 2 mm/hr (2-15)
== END 2025-04-02 23:28 | disposition short-term general hospital (02) ==
PROVIDERS: Student in an Organized Health Care Education/Training Program; Emergency Provider Student in an Organized Health Care Education/Training Program
DX: N17.9 Acute kidney failure, unspecified (principal); E86.0 Dehydration; R79.89 Other specified abnormal findings of blood chemistry
CPT/HCPCS: 36415; 70450; 71045; 80048; 80053; 80306; 81001; 82550; 82803; 82947; 83605; 83735; 84443; 84484; 85025; 85610; 85651; 85730; 86140; 99285; 99291; J7030; J7120

== ENCOUNTER 2025-04-02 23:22 | Outpatient (CLI) | payer OTHER, SELFPAY | END 2025-04-02 23:23 | disposition home or self-care (01) | LOC: AMB 04-04 14:14 | PROVIDERS: Visit Provider Emergency Medicine | DX: I21.3 ST elevation (STEMI) myocardial infarction of unspecified site (principal) | CPT/HCPCS: A0425; A0427 ==